=== PATIENT | female | born 1955 | race Two or more races ===

== ENCOUNTER → 2018-05-19 | Day surgery (SDC) | payer OTHER ==
[~2018-05-19] VITALS: Ht 154.9 cm; Wt 117.0 kg
[2018-05-19] VITALS (9 sets, daily range): BP systolic 135–151; BP diastolic 60–80
[~2018-05-19] MED LIST: Bupivacaine w/Epi 0.25% 30ml Vial INJ ONE; Clindamycin 600mg 50 ML IV ONE; D5 1/2NS 1,000 ML IV SCH; DiphenhydrAMINE 50mg/ml Inj IVP PRN; EPINEPHrine 1mg/1ml Amp ONE; Glycopyrrolate 0.2mg/ml 1ml Vial ONE; HUMALOG KW200 UNIT/1 SQ; HYDROmorphone 1mg/ml Carpuject SUBQ PRN; Kenalog-40 1ml Vial ONE; Ketorolac 30mg Inj IV PRN; Ketorolac 30mg Inj ONE; LISINOPRIL20 MG ORAL; LOVASTATIN40 MG ORAL; LR 1000ml 1,000 ML IVLG SCH; LR 1000ml ONE; Lidocaine 1% MPF 10mg/ml 5ml ONE; METFORMIN HCL1000 M1 ORAL; METOPROLOL TART50 MG ORAL; Midazolam 2mg/2ml Inj ONE; Morphine Sulfate PF 0 ML ONE; NS Irrig 4000ml IRRIG ONE; Neostigmine 1mg/ml 10ml Inj ONE; Norco 5mg/325mg tab ORAL PRN; OMEPRAZOLE20 M3 ORAL; PAMELOR25 MG ORAL; PAROXETINE HCL40 MG ORAL; Propofol 200mg/20ml IV ONE; Ropivacaine 5mg/ml Vial 30ml INJ ONE; Succinylcholine 20mg/ml 10ml vial ONE; TOUJEO SOL300 UNIT/1 SQ; TRAMADOL HCL50 MG ORAL; TRAZODONE HCL150 MG ORAL; Tylenol #3 tab (300mg/30mg) ORAL PRN; Zemuron 50mg/5ml Inj IV ONE; celeBREX 200mg Cap **SURGERY PATIENTS ONLY ORAL ONE; celeBREX 200mg Cap **SURGERY PATIENTS ONLY ORAL SCH; fentaNYL 100 mcg/2 mL IV ONE; fentaNYL 100 mcg/2 mL IV PRN; oxyCONTIN 20mg tab ORAL ONE
--- NOTE | 2018-05-19 15:05 | Pre-Procedure Note/Attestation ---
Pre-Procedure Note/Attestation Complete Prior to Procedure Planned Procedure: right Procedure Narrative: shoulder arthroscopy, sad Indications for Procedure Pre-Operative Diagnosis: right shoulder impingement Attestation I attest that I discussed the nature of the procedure; its benefits; risks and complications; and alternatives (and the risks and benefits of such alternatives ), prior to the procedure, with the patient (or the patient's legal technical service representative). I attest that, if there was a reasonable possibility of needing a blood transfusion, the patient (or the patient's legal technical service representative) was given the [facility] standardized written summary, pursuant to the [place] Blood Safety Act ([place] Health and Safety Code # 1645, as amended). I attest that I re-evaluated the patient just prior to the surgery and that there has been no change in the patient's H&P, except as documented below: Pancho Nicholson MD May 19, 2018 15:05
--- NOTE | 2018-05-19 15:05 | Operative Note - PDOC ---
Operative Note Operative Note Pre-op Diagnosis: right shoulder impingement Procedure: see op report Post-op Diagnosis: same as pre-op plus Anesthesia: general Specimen: none Complications: none Condition: stable Estimated Blood Loss: none Implant(s) used?: No Pancho Nicholson MD May 19, 2018 15:05
--- NOTE | 2018-05-19 16:28 | Anethesia Preoperative Eval ---
Anesthesia Pre-op PMH/ROS General Date of Evaluation: May 19, 2018 Time of Evaluation: 14:40 Anesthesiologist: Mary ASA Score: ASA 3 Mallampati Score Class I : Soft palate, uvula, fauces, pillars visible Class II: Soft palate, uvula, fauces visible Class III: Soft palate, base of uvula visible Class IV: Only hard plate visible Mallampati Classification: Class III Surgeon: Bharat Diagnosis: R shoulder pain Surgical Procedure: R shoulder scope Anesthesia History: none Family History: no anesthesia problems Allergies: Coded Allergies: PENICILLINS (Unverified Allergy, Severe, 05/19/18) RASH SHELLFISH DERIVED (Unverified Allergy, Severe, 05/19/18) RASH Medications: see eMAR Patient NPO?: Yes Past Medical History Cardiovascular: Reports: HTN; Denies: CAD, [place], valve dz, arrhythmia, other Pulmonary: Reports: SHARON; Denies: asthma, COPD, other Gastrointestinal/Genitourinary: Reports: GERD; Denies: CRI, ESRD, other Neurologic/Psychiatric: Reports: other - chronic pain; Denies: dementia, CVA, depression/anxiety, TIA Endocrine: Reports: DM - on insulin; Denies: hypothyroidism, steroids, other HEENT: Denies: cataract (L), cataract (R), glaucoma, [place] (L), [place] (R), other Hematology/Immune: Denies: anemia, DVT, bleeding disorder, other Musculoskeletal/Integumentary: Reports: DJD; Denies: OA, RA, DDD, edema, other Other: obesity - morbid obesity PMH Narrative: as above PSxH Narrative: C sections x 4, hernia repair, bilateral knee replacement, lumbar spine laminectomy Anesthesia Pre-op Phys. Exam Physician Exam Last Vital Signs Date Time Temp Pulse Resp B/P (MAP) Pulse Ox O2 Delivery O2 Flow Rate FiO2 05/19/18 12:59 Room Air 05/19/18 12:57 97.8 71 18 136/63 97 97.8 Constitutional: NAD Neurologic: CN 2-12 intact Cardiovascular: RRR, no M/R/G Respiratory: CTA Gastrointestinal: other - morbid obesity Airway Exam Mallampati Score: Class III MO: limited Neck: short ROM: limited Teeth: missing Dentures: no upper, no lower Anesthesia Pre-op A/P Labs see chart Studies Pre-op Studies: EKG - NSR Risk Assessment & Plan Assessment: ASA 3 Plan: GA with ETT. R brachial plexus block Status Change Before Surgery: No Pre-Antibiotics Drug: Clindamycin 600 mg Given Within 1 Hr of Incision: Yes Time Given: 15:20 Daniel Hernandez MD May 19, 2018 16:28
--- NOTE | 2018-05-19 17:07 | Immediate Post-Op Evaluation ---
Immediate Post-Op Evalulation Immediate Post-Op Evalulation Procedure: R shoulder arthroscopy subacromion decompression Date of Evaluation: May 19, 2018 Time of Evaluation: 17:06 IV Fluids: 800 Blood Products: none Estimated Blood Loss: min Urinary Output: none Blood Pressure Systolic: 135 Blood Pressure Diastolic: 80 Pulse Rate: 82 Respiratory Rate: 20 O2 Sat by Pulse Oximetry: 98 Temperature (Fahrenheit): 97.5 Pain Score (1-10): 2 Nausea: No Vomiting: No Patient Status: reacts, patent, extubated, none Hydration Status: adequate Daniel Hernandez MD May 19, 2018 17:07
--- NOTE | 2018-05-19 18:45 | Operative Note - Dictated ---
DATE OF OPERATION: 05/19/2018 NOTE: "POOR AUDIO QUALITY" PREOPERATIVE DIAGNOSIS: Right shoulder internal derangement. POSTOPERATIVE DIAGNOSES: 1. Right shoulder grade 2 superior labral tear. 2. Right shoulder bursal-sided rotator cuff tear. 3. Right shoulder hypertrophic bursitis. PROCEDURES: 1. Right shoulder arthroscopy. 2. Biceps soft tissue tenodesis. 3. Right shoulder subacromial decompression and bursectomy. 4. Right shoulder debridement of bursal-sided rotator cuff tear. SURGEON: Pancho Nicholson M.D. ANESTHESIA: Interscalene with general. INDICATION FOR PROCEDURE: The patient is a pleasant female who has had progressive right shoulder pain. She had an MRI, which showed a tear of this, I believe in the superior labrum, possible rotator cuff. She failed conservative treatment and elected to undergo right shoulder arthroscopy, possible SLAP repair versus debridement, decompression, bursectomy, possible debridement versus repair of rotator cuff. Risks, limitations, expectations, and complications of procedure were discussed in detail. All questions were addressed. DESCRIPTION OF PROCEDURE: After informed consent was obtained, the patient was brought to the operating room. The patient was placed under interscalene with general anesthesia. The patient was then carefully placed in beach-chair position. Right shoulder was prepped and draped in sterile manner. Time-out was performed. Ancef was administered. Portal sites were marked. The skin was incised. Trocar was introduced into the glenohumeral joint. There was significant tearing of the biceps tendon extending to the superior labrum. The undersurface of the rotator cuff appeared to be intact. There was no significant chondral damage. The anterior labrum appeared to be intact at the level of the subscap. Therefore given her age, history of diabetes, biceps tenotomy was performed. The biceps tendon was debrided down to stable labral tissue. Once that was done, the camera was placed in the subacromial space. Complete bursectomy was performed. The undersurface of the acromion was identified. Approximately 3 mm of anterolateral edge of the acromion was removed. Once that was done, complete bursectomy was performed. There was a bursal-sided partial rotator cuff tear which was debrided. Once that was done, the camera was repositioned back in the glenohumeral joint. The footprint of the supraspinatus and infraspinatus were noted to be intact and there was adequate release of the biceps tendon, which was still in the bicipital groove. At this point, the instruments were removed. Portal sites were closed with 3-0 Monocryl sutures. Steri-Strips and a sterile dressing were applied. The patient was awoken and taken to recovery room with stable vital signs. ESTIMATED BLOOD LOSS: None. COMPLICATIONS: None. SPECIMENS: None. IMPLANTS: None. Pancho Nicholson M.D. DR: Linda JOB#: [id number] CC:
[2018-05-20 08:44] VITALS: BP 136/74
--- NOTE | 2018-05-20 08:44 | 48 Hour Post Anesthesia Eval ---
Post Anesthesia Evaluation Procedure: R shoulder arthroscopy subacromion decompression Date of Evaluation: May 19, 2018 Time of Evaluation: 19:20 Blood Pressure Systolic: 136 0: 74 Pulse Rate: 68 Respiratory Rate: 20 Temperature (Fahrenheit): 97.6 O2 Sat by Pulse Oximetry: 97 Airway: patent Nausea: No Vomiting: No Pain Intensity: 2 Hydration Status: adequate Cardiopulmonary Status: stable Mental Status/LOC: patient returned to baseline Follow-up Care/Observations: n/a Post-Anesthesia Complications: none Follow-up care needed: ready to discharge Daniel Hernandez MD May 20, 2018 08:44
== END | disposition home or self-care (01) ==
LOC: SUR 12:19
DX: S43.431A Superior glenoid labrum lesion of right shoulder, initial encounter (principal); M75.101 Unspecified rotator cuff tear or rupture of right shoulder, not specified as traumatic; M75.51 Bursitis of right shoulder; E11.9 Type 2 diabetes mellitus without complications; Z79.4 Long term (current) use of insulin; I10 Essential (primary) hypertension; G47.33 Obstructive sleep apnea (adult) (pediatric); K21.9 Gastro-esophageal reflux disease without esophagitis; G89.29 Other chronic pain; M19.90 Unspecified osteoarthritis, unspecified site; F41.9 Anxiety disorder, unspecified; Z88.0 Allergy status to penicillin; Z91.013 Allergy to seafood
CPT/HCPCS: 29823; 29826; 29828; 82962; J0171; J0330; J1885; J2250; J2405; J2704; J2710; J2795; J3010; J3301; 94003; 94150; S0077